=== PATIENT | female | born 1930 | race Caucasian/White ===

== ENCOUNTER 2017-02-19 08:12 | Day surgery (SDC) | payer OTHER ==
[2017-02-18 11:42] VITALS: BP 151/66
[2017-02-18 12:02] LABS: BASOPHILS # (AUTO) 0.03 x10^3/uL (0-0.1); BASOPHILS % (AUTO) 0 % (0-1); EOSINOPHILS # (AUTO) 0.13 x10^3/uL (0-0.4); EOSINOPHILS % (AUTO) 2 % (1-7); LYMPHOCYTES # (AUTO) 1.48 x10^3/uL (1-3.4); LYMPHOCYTES % (AUTO) 23 % (22-44); MD NO; MEAN CORPUSCULAR HEMOGLOBIN 29.3 pg (27.0-34.8); MEAN CORPUSCULAR HGB CONC 34.4 g/dL (32.4-35.8); MEAN PLATELET VOLUME 8.4 fL (7.4-10.4); MONOCYTES # (AUTO) 0.57 x10^3/uL (0.2-0.8); MONOCYTES % (AUTO) 9 % (2-9); NEUTROPHILS # (AUTO) 4.23 x10^3/uL (1.8-6.8); NEUTROPHILS % (AUTO) 66 % (42-75); PLATELET COUNT 205 x10^3/uL (130-400); RED BLOOD COUNT 5.09 x10^6/uL (3.82-5.3); RED CELL DISTRIBUTION WIDTH 16.4 % (9.6-15.2)
[2017-02-18 12:09] LABS: ANION GAP 8 mmol/L (5-15); CALCIUM 9.7 mg/dL (8.5-10.1); CHLORIDE 104 mmol/L (98-107)
[2017-02-18 12:10] LABS: CREATININE 0.77 mg/dL (0.55-1.02)
[~2017-02-19] VITALS: Ht 165.1 cm; Wt 51.8 kg
[~2017-02-19 08:12] MED LIST: ASPI-496 PO; ATOR20TA9 PO; FURO20TA3 PO; LOSA50TA6 PO; MULT-224 PO; POTA20TA89 PO; PRAV40TA2 PO
[2017-02-19] MEDS ORDERED: SODIUM CHLORIDE 0.9% 1,000 ML IV ONE (08:21)
[2017-02-19] MEDS ORDERED: MIDAZOLAM 1 MG/ML, 5ML ONE (09:16)
[2017-02-19] MEDS ORDERED: FENTANYL PF 100 MCG/2ML ONE (09:16)
[2017-02-19] MEDS ORDERED: HEPARIN 1,000 UNITS/ML, 10ML ONE (09:17)
[2017-02-19] MEDS ORDERED: NITROGLYCERIN 5 MG/ML, 10ML ONE (09:17)
[2017-02-19] MEDS ORDERED: LIDOCAINE 2%, 20ML ONE (09:17)
[2017-02-19] MEDS ORDERED: VERAPAMIL 2.5 MG/ML, 2ML ONE (09:17)
[2017-02-19] MEDS ORDERED: SODIUM CHLORIDE 0.9% 1,000 ML IV SCH (11:01)
== END 2017-02-19 13:44 ==
LOC: CACL 08:12
PROVIDERS: ATTEND Internal Medicine Cardiovascular Disease
DX: I35.0 Nonrheumatic aortic (valve) stenosis (principal); I50.22 Chronic systolic (congestive) heart failure; I10 Essential (primary) hypertension; Z79.82 Long term (current) use of aspirin; Z88.0 Allergy status to penicillin; Z88.8 Allergy status to other drugs, medicaments and biological substances
CPT/HCPCS: 36415; 80048; 85025; 93454; 99156; C1769; C1894; J1644; J2250; J3010; J3490; Q9967

== ENCOUNTER → 2017-03-12 | Outpatient (CLI) | payer OTHER | END | disposition home or self-care (01) | LOC: RAD 11:23 | PROVIDERS: ATTEND Internal Medicine Cardiovascular Disease | DX: I65.23 Occlusion and stenosis of bilateral carotid arteries (principal); N28.1 Cyst of kidney, acquired; Z90.710 Acquired absence of both cervix and uterus | CPT/HCPCS: 71275; 74174; 93880; 94060; 94726; 94729 ==

== ENCOUNTER 2017-04-15 08:17 | Inpatient (IN) | payer OTHER ==
[~2017-04-15] VITALS: Ht 165.1 cm; Wt 48.6 kg
[~2017-04-15 08:17] MED LIST changes: +HEPARIN 1,000 UNITS/ML, 30ML ONE
[2017-04-15] MEDS ORDERED: SODIUM CHLORIDE 0.9% 1,000 ML IV ONE (08:35)
[2017-04-15 08:37] VITALS: BP 148/86
[2017-04-15] MEDS ORDERED: PLEASE ENTER HEIGHT AND WEIGHT MC SCH (08:40)
[2017-04-15] MEDS ORDERED: OMEP20TA62 PO (08:51)
[2017-04-15] MEDS ORDERED: PRAV40TA2 PO (08:51)
[2017-04-15] MEDS ORDERED: ATOR20TA PO (08:51)
[2017-04-15] MEDS ORDERED: IBUP200C8 PO (08:51)
[2017-04-15] MEDS ORDERED: ACETAMINOPHEN 325 MG TABLET PO PRN ×2 (09:00→12:30)
[2017-04-15] MEDS ORDERED: CHLORHEXIDINE GLUCONATE MOUTHWASH 0.12%, 473ML MM PRN (09:00)
[2017-04-15] MEDS ORDERED: ONDANSETRON 2MG/ML, 2ML IVPush PRN ×2 (09:00→12:30)
[2017-04-15 09:06] LABS: BASOPHILS # (AUTO) 0.04 x10^3/uL (0-0.1); BASOPHILS % (AUTO) 1 % (0-1); EOSINOPHILS # (AUTO) 0.18 x10^3/uL (0-0.4); EOSINOPHILS % (AUTO) 3 % (1-7); LYMPHOCYTES % (AUTO) 26 % (22-44); MD NO; MEAN CORPUSCULAR HEMOGLOBIN 30.1 pg (27.0-34.8); MEAN CORPUSCULAR HGB CONC 33.7 g/dL (32.4-35.8); MEAN CORPUSCULAR VOLUME 89.4 fL (80-100); MEAN PLATELET VOLUME 8.6 fL (7.4-10.4); MONOCYTES % (AUTO) 9 % (2-9); NEUTROPHILS # (AUTO) 3.61 x10^3/uL (1.8-6.8); NEUTROPHILS % (AUTO) 62 % (42-75); PLATELET COUNT 222 x10^3/uL (130-400); RED BLOOD COUNT 4.58 x10^6/uL (3.82-5.3); RED CELL DISTRIBUTION WIDTH 16.6 % (9.6-15.2)
[2017-04-15 09:09] LABS: PROTHROMBIN TIME 10.3 Seconds (9.6-11.5)
[2017-04-15 09:13] LABS: ALANINE AMINOTRANSFERASE 27 U/L (12-78); ALBUMIN 4.3 g/dL (3.4-5.0); ANION GAP 9 mmol/L (5-15); CALCIUM 9.7 mg/dL (8.5-10.1); CHLORIDE 101 mmol/L (98-107)
[2017-04-15 09:17] LABS: ALKALINE PHOSPHATASE 97 U/L (45-117); BILIRUBIN,TOTAL 0.5 mg/dL (0.2-1.0); TOTAL PROTEIN 8.6 g/dL (6.4-8.2)
[2017-04-15] MEDS ORDERED: FENTANYL PF 250 MCG/5ML ONE (10:19)
[2017-04-15] MEDS ORDERED: LIDOCAINE 2%, 20ML ONE (10:28)
[2017-04-15] MEDS ORDERED: PROTAMINE SULFATE 10 MG/ML, 5ML ONE (12:01)
[2017-04-15] MEDS ORDERED: GLUCAGON 1 MG IM PRN (12:30)
[2017-04-15] MEDS ORDERED: DEXTROSE 4 GM TAB.CHEW PO PRN (12:30)
[2017-04-15] MEDS ORDERED: IBUPROFEN 200 MG TABLET PO PRN (12:30)
[2017-04-15] MEDS ORDERED: DEXTROSE 50%, 50ML SYRINGE IVPush PRN (12:30)
[2017-04-15] MEDS ORDERED: HYDROcodone/APAP 5/325 TABLET PO PRN (12:30)
[2017-04-15] MEDS: CLOPIDOGREL 75 MG TABLET PO SCH (12:58)
[2017-04-15] MEDS: MULTIVITAMIN 1 TABLET PO SCH (12:58)
[2017-04-15] MEDS: LOSARTAN 50MG TABLET PO SCH (12:58)
[2017-04-15] MEDS: ASPIRIN 81 MG TABLET EC PO SCH (12:58)
[2017-04-15] MEDS ORDERED: LABETALOL 5MG/ML, 20ML ONE (13:08)
[2017-04-15] MEDS: LABETALOL 5MG/ML, 20ML IVPush PRN ×3 (13:45→15:40)
[2017-04-15] MEDS ORDERED: LABETALOL 5MG/ML, 20ML IVPush PRN ×2 (17:00→17:30)
[2017-04-15] MEDS: FUROSEMIDE 20 MG TABLET PO SCH (18:46)
[2017-04-15 19:10] VITALS: BP 155/53
[2017-04-15] MEDS: SODIUM CHLORIDE FLUSH 10ML SYR IVF SCH (20:31)
[2017-04-15] MEDS ORDERED: ATORVASTATIN 20 MG TABLET PO SCH (21:00)
[2017-04-15] MEDS ORDERED: PRAVASTATIN 40 MG TABLET PO SCH (21:00)
[2017-04-16 00:51] VITALS: BP 109/52
[2017-04-16 05:20] LABS: BASOPHILS # (AUTO) 0.03 x10^3/uL (0-0.1); BASOPHILS % (AUTO) 1 % (0-1); EOSINOPHILS # (AUTO) 0.19 x10^3/uL (0-0.4); EOSINOPHILS % (AUTO) 3 % (1-7); LYMPHOCYTES % (AUTO) 15 % (22-44); MD NO; MEAN CORPUSCULAR HEMOGLOBIN 30.5 pg (27.0-34.8); MEAN CORPUSCULAR HGB CONC 34.2 g/dL (32.4-35.8); MEAN CORPUSCULAR VOLUME 89.3 fL (80-100); MEAN PLATELET VOLUME 8.9 fL (7.4-10.4); MONOCYTES # (AUTO) 0.69 x10^3/uL (0.2-0.8); MONOCYTES % (AUTO) 10 % (2-9); NEUTROPHILS # (AUTO) 4.72 x10^3/uL (1.8-6.8); NEUTROPHILS % (AUTO) 71 % (42-75); PLATELET COUNT 158 x10^3/uL (130-400); RED BLOOD COUNT 3.46 x10^6/uL (3.82-5.3); RED CELL DISTRIBUTION WIDTH 16.4 % (9.6-15.2)
[2017-04-16 05:26] LABS: ALBUMIN 3.1 g/dL (3.4-5.0); ANION GAP 5 mmol/L (5-15); CALCIUM 8.3 mg/dL (8.5-10.1); CHLORIDE 106 mmol/L (98-107)
[2017-04-16 05:27] LABS: CREATININE 0.92 mg/dL (0.55-1.02)
[2017-04-16 07:52] VITALS: BP 135/72
[2017-04-16] MEDS: ASPIRIN 81 MG TABLET EC PO SCH (08:25)
[2017-04-16] MEDS: CLOPIDOGREL 75 MG TABLET PO SCH (08:25)
[2017-04-16] MEDS: LOSARTAN 50MG TABLET PO SCH (08:25)
[2017-04-16] MEDS: SODIUM CHLORIDE FLUSH 10ML SYR IVF SCH (08:25)
[2017-04-16] MEDS: MULTIVITAMIN 1 TABLET PO SCH (08:25)
[2017-04-16] MEDS: FUROSEMIDE 20 MG TABLET PO SCH (08:26)
[2017-04-16] MEDS ORDERED: CLOP75TA PO (13:26)
[2017-04-16 13:33] VITALS: BP 133/65
[2017-04-16] MEDS ORDERED: PROPOFOL 10 MG/ML, 20ML ONE (15:17)
[2017-04-16] MEDS ORDERED: SUCCINYLCHOLINE 20 MG/ML, 10ML ONE (15:17)
[2017-04-16] MEDS ORDERED: VASOPRESSIN 20 UNIT/ML, 1ML ONE (15:17)
[2017-04-16] MEDS ORDERED: ONDANSETRON 2MG/ML, 2ML ONE (15:17)
[2017-04-16] MEDS ORDERED: ROCURONIUM 10 MG/ML,10ML ONE (15:17)
== END 2017-04-16 18:51 | disposition home or self-care (01) | DRG 266 ==
LOC: ORIP 08:17 → CCU 12:22 → 5SO 18:42
PROVIDERS: ADMIT Internal Medicine Cardiovascular Disease; ATTEND Internal Medicine Cardiovascular Disease
PROC: 027F3ZZ Dilation of Aortic Valve, Percutaneous Approach (ICD-10-PCS; 2017-04-15)
PROC: B3101ZZ Fluoroscopy of Thoracic Aorta using Low Osmolar Contrast (ICD-10-PCS; 2017-04-15)
PROC: 02RF38Z Replacement of Aortic Valve with Zooplastic Tissue, Percutaneous Approach (ICD-10-PCS; principal; 2017-04-15 10:00)
DX: I35.0 Nonrheumatic aortic (valve) stenosis (principal); Z00.6 Encounter for examination for normal comparison and control in clinical research program; I50.43 Acute on chronic combined systolic (congestive) and diastolic (congestive) heart failure; I48.91 Unspecified atrial fibrillation; I70.0 Atherosclerosis of aorta; I11.0 Hypertensive heart disease with heart failure; M19.90 Unspecified osteoarthritis, unspecified site
CPT/HCPCS: 33361; 36415; 71045; 80048; 80053; 82040; 82330; 82803; 82947; 83880; 84132; 84295; 85014; 85025; 85347; 85610; 85730; 86850; 86900; 86923; 87081; 92986; 93005; 93308; 93312; 93321; 93325; 93355; C1760; C1769; C1894; J1644; J2405; J2704; J2720; J3010; J3490; J0330; J7030; Q9967